=== PATIENT | male | born 1980 | race Two or more races ===

== ENCOUNTER 2017-09-13 20:41 | Emergency (ER) | payer SELFPAY ==
[~2017-09-13] VITALS: Ht 177.8 cm; Wt 102.1 kg
--- NOTE | 2017-09-13 20:45 | NUR ---
PT BERLIN 62 /[employer] FROM HOME FOR ETOH. PT STATES "NO COMPLAINTS" FIELD BS 112. DENIES HI SI, PT PUT ON A MONITOR,WAITING FOR MD CENTENO.
[2017-09-13] MEDS ORDERED: diphenhydrAMINE HCL 50 MG/ML VIAL ONE ×2 (22:57→23:37)
[2017-09-13] MEDS ORDERED: HALOPERIDOL LACTATE INJ 5 MG/ML VIAL ONE (22:57)
[2017-09-13] MEDS ORDERED: diphenhydrAMINE HCL 50 MG/ML VIAL IM ONE (23:00)
[2017-09-13] MEDS ORDERED: HALOPERIDOL LACTATE INJ 5 MG/ML VIAL IM ONE (23:00)
--- NOTE | 2017-09-13 23:23 | NUR ---
PATIENT NOW ON BED 6, RESTRAINTS ON. WILL MONITOR AND RELEASE Q2H AND PRN. PROMOTED SAFE ENVIRONMENT.
--- NOTE | 2017-09-13 23:24 | NUR ---
ONGOING CARDIAC AND VS MONITORING.
[2017-09-14] MEDS ORDERED: IV NS 0.9% 1,000 ML BAG IV ONE
[2017-09-14] MEDS ORDERED: diphenhydrAMINE HCL 50 MG/ML VIAL IV ONE
--- NOTE | 2017-09-14 00:09 | NUR ---
hand restraints released at this time. patient was able to urinate on to the urinal. skin check and rom done. no adverse condition noted.
--- NOTE | 2017-09-14 02:20 | NUR ---
ASSISTED PATIENT TO URINATE IN THE URINAL. NAD NOTED. VSS. RESTRAINTS RELEASED, ROM AND SKIN CHECK DONE.
--- NOTE | 2017-09-14 03:19 | NUR ---
PT NOTED AOX3. PT WITH STEADY GAIT. DR. CORNEJO AWARE
--- NOTE | 2017-09-14 03:26 | NUR ---
IV removed. Catheter intact and site benign. Pressure and 4x4 applied to site. No bleeding noted. Patient discharged to home via taxi in stable condition. Written and verbal after care instructions given. Patient verbalizes understanding of instruction. Patient is ambulatory with steady gait, no further complaints.
[2017-09-14 03:28] VITALS: BP 126/72
== END 2017-09-14 03:28 | disposition home or self-care (01) ==
LOC: ER 20:42
DX: F10.129 Alcohol abuse with intoxication, unspecified (principal)
CPT/HCPCS: 82962; 96361; 96372 ×2; 96374; 99284; A4606; J1200 ×2; J1630; Z7610